=== PATIENT | female | born 1990 | race Caucasian/White ===

== ENCOUNTER 2017-10-07 11:13 | Emergency (ER) | END 2017-10-07 16:33 | disposition home or self-care (01) ==

== ENCOUNTER 2019-05-12 19:19 | Emergency (ER) | payer MEDICAID ==
[~2019-05-12] VITALS: Ht 165.1 cm; Wt 81.9 kg
[~2019-05-12 19:19] MED LIST: ACET500C5 PO; CEPH-443 PO
[2019-05-12 19:23] VITALS: Ht 165.1 cm; Wt 81.9 kg
[2019-05-12] MEDS ORDERED: METOCLOPRAMIDE 10 MG INJ IV STA (20:06)
[2019-05-12] MEDS ORDERED: SOD CHLORIDE 0.9% 1,000 ML IV STA (20:06)
[2019-05-12 21:38] VITALS: BP 121/76; PULSE 82; RESP 20
--- NOTE | 2019-05-12 21:42 | ERD ---
ER Documentation Chief Complaint Chief Complaint AP/pressure x1 day w/ vomiting. no diarrhea. 14 weeks HPI 29-year-old female presents with lower abdominal pressure and some blood with wiping after urinating for the last day. She said intermittent vomiting approximately 2-3 times a day #30. She is 14 weeks by dates. She is a G5 para 2. She denies fevers, upper abdominal pain, flank pain. ROS All systems reviewed and are negative except as per history of present illness. Medications Home Meds Active Scripts Acetaminophen* (Tylophen*) 500 Mg Capsule, 1 CAP PO Q6H PRN for PAIN AND OR ELEVATED TEMP, #15 CAP Prov:QUINTIN SANDS MD 05/12/19 Cephalexin* (Keflex*) 500 Mg Capsule, 500 MG PO QID for 5 Days, CAP Prov:QUINTIN SANDS MD 05/12/19 Allergies Allergies: Coded Allergies: No Known Allergy (Unverified , 10/07/17) PMhx/Soc History of Surgery: No Anesthesia Reaction: No Hx Neurological Disorder: No Hx Respiratory Disorders: No Hx Cardiac Disorders: No Hx Psychiatric Problems: No Hx Miscellaneous Medical Probl: No Hx Alcohol Use: No Hx Substance Use: No Hx Tobacco Use: No Smoking Status: Never smoker FmHx Family History: No diabetes, No coronary disease, No other Physical Exam Vitals Vital Signs Date Temp Pulse Resp B/P (MAP) Pulse Ox O2 O2 Flow FiO2 Time Delivery Rate 05/12/19 98.0 82 20 121/76 98 Room Air 21:38 (91) 05/12/19 99.6 91 16 139/81 97 19:23 (100) Physical Exam Const: No acute distress Head: Atraumatic Eyes: Normal Conjunctiva ENT: Normal External Ears, Nose and Mouth. Neck: Full range of motion. No meningismus. Resp: Clear to auscultation bilaterally Cardio: Regular rate and rhythm, no murmurs Abd: Soft, non tender, non distended. Normal bowel sounds Skin: No petechiae or rashes Back: No midline or flank tenderness Ext: No cyanosis, or edema Neur: Awake and alert Psych: Normal Mood and Affect Result Diagram: 05/12/19203105/12/192031 Results 24 hrs Laboratory Tests Test 05/12/19 20:32 White Blood Count 9.1 10^3/ul Red Blood Count 3.95 10^6/ul Hemoglobin 12.4 g/dl Hematocrit 36.3 % Mean Corpuscular Volume 91.9 fl Mean Corpuscular Hemoglobin 31.4 pg Mean Corpuscular Hemoglobin Concent 34.2 g/dl Red Cell Distribution Width 12.5 % Platelet Count 235 10^3/UL Mean Platelet Volume 9.1 fl Immature Granulocytes % 0.200 % Neutrophils % 63.3 % Lymphocytes % 27.5 % Monocytes % 7.5 % Eosinophils % 1.2 % Basophils % 0.3 % Nucleated Red Blood Cells % 0.0 /100WBC Immature Granulocytes # 0.020 10^3/ul Neutrophils # 5.7 10^3/ul Lymphocytes # 2.5 10^3/ul Monocytes # 0.7 10^3/ul Eosinophils # 0.1 10^3/ul Basophils # 0.0 10^3/ul Nucleated Red Blood Cells # 0.0 10^3/ul Urine Color YELLOW Urine Clarity CLOUDY Urine pH 6.0 Urine Specific [place] 1.017 Urine Ketones NEGATIVE mg/dL Urine Nitrite NEGATIVE mg/dL Urine Bilirubin NEGATIVE mg/dL Urine Urobilinogen 1+ mg/dL Urine Leukocyte Esterase 1+ Lori/ul Urine Microscopic RBC 4 /HPF Urine Microscopic WBC 7 /HPF Urine Squamous Epithelial Cells FEW /HPF Urine Amorphous Crystals FEW /HPF Urine Bacteria FEW /HPF Urine Mucus FEW /HPF Urine Hemoglobin 2+ mg/dL Urine Glucose NEGATIVE mg/dL Urine Total Protein NEGATIVE mg/dl Sodium Level 136 mmol/L Potassium Level 3.5 mmol/L Chloride Level 103 mmol/L Carbon Dioxide Level 25 mmol/L Anion Gap 8 Blood Urea Nitrogen 9 mg/dl Creatinine 0.52 mg/dl Est Glomerular Filtrat Rate mL/min > 60 mL/min Glucose Level 90 mg/dl Calcium Level 9.4 mg/dl Current Medications Medications Dose Sig/Kaia Start Time Status Last (Trade) Ordered Route PRN Stop Time Admin Dose Reason Admin Sodium 1,000 ml @ Q1H STAT 05/12/19 DC 05/12/19 Chloride 1,000 mls/hr IV 20:06 20:37 05/12/19 21:05 10 mg ONCE STAT 05/12/19 DC 05/12/19 Metoclopramid IV 20:06 20:36 e HCl 05/12/19 20:07 (Reglan) Cephalexin 500 mg ONCE ONCE 05/12/19 UNV (Keflex) PO 22:00 05/12/19 22:01 Procedures/MDM Shows leukocyte esterase and white blood cells. Second trimester ultrasound shows no acute abnormalities. CBC and basic metabolic panel normal. Patient given 1 L normal saline IV, Reglan 10 mg IV. Patient presents with lower abd ominal pressure and signs of UTI. She has no signs of complications of , ectopic , signs of appendicitis, surgical abdomen. She will be treated with Keflex, Tylenol, recommendations for fluids, primary care follow-up and return precautions. The patient was stable with no new complaints during the ER course. Clinically, there is no current evidence to suggest meningitis, sepsis, acute abdomen, pneumonia, stroke, acute coronary syndrome, pulmonary embolism, aortic dissection or any other emergent condition appearing to require further evaluation or hospitalization. Patient counseled regarding my diagnostic impression and care plan. Prior to discharge all questions answer ed. Pt agrees with treatment plan and understands strict return precautions. Pt is instructed to follow up with primary care provider within 24-48 hours. Precautionary instructions provided including instructions to return to the ER if not improving or for any worsening or changing symptoms or concerns. Disclaimer: Inadvertent spelling and grammatical errors are likely due to EHR/dictation software use and do not reflect on the overall quality of patient care. Also, please note that the electronic time recorded on this note does not necessarily reflect the actual time of the patient encounter. Departure Diagnosis: Primary Impression: UTI (urinary tract infection) Urinary tract infection type: acute cystitis Hematuria presence: with hematuria Qualified Codes: N30.01 - Acute cystitis with hematuria Additional Impression: Acute pain in female pelvis Condition: Stable Patient Instructions: Understanding Urinary Tract Infections (UTIs), Pelvic Pain In : Unclear (2-3 Trimester) Additional Instructions: hay infeccion en orina. otro examines normal hoy. Cheque otro vez con mena doctor primario en el proximo herrera or regresa para mas o nueva simptomas. QUINTIN SANDS MD May 12, 2019 21:42
[2019-05-12] MEDS ORDERED: CEPHALEXIN 500 MG CAP PO ONE (22:00)
== END 2019-05-12 21:38 | disposition home or self-care (01) ==
LOC: FTE 19:19
DX: O23.12 Infections of bladder in pregnancy, second trimester (principal); R10.2 Pelvic and perineal pain; Z3A.15 15 weeks gestation of pregnancy
CPT/HCPCS: 36415; 76805; 80048; 81001; 85025; 96361; 96374; J2765; J7030; Z7502; Z7610